=== PATIENT | female | born 1985 | race Two or more races ===

== ENCOUNTER 2016-07-07 09:06 | Emergency (ER) | payer BC, MEDICAID ==
[2016-07-07 10:40] LABS: ABSOLUTE EOSINOPHILS # (AUTO) 0.1 10^3/uL (0.0-0.6); ABSOLUTE LYMPHOCYTES (AUTO) 2.6 10^3/uL (0.5-4.7); ABSOLUTE MONOCYTES (AUTO) 0.5 10^3/uL (0.1-1.4); ABSOLUTE NEUT (AUTO) 3.6 10^3/uL (1.7-8.2); BASOPHILS % (AUTO) 0.7 % (0-2); HEMATOCRIT 21.4 % (36.0-47.0); HGB HCT DIFFERENCE -0.7; LYMPHOCYTES % (AUTO) 37.7 % (13-45); MEAN CORPUSCULAR HEMOGLOBIN 24.9 pg (27.0-33.4); MEAN CORPUSCULAR HGB CONC 32.3 g/dL (32.0-36.0); MEAN CORPUSCULAR VOLUME 77 fl (80-97); MONOCYTES % (AUTO) 7.5 % (3-13); RED BLOOD COUNT 2.78 10^6/uL (3.72-5.28); RED CELL DISTRIBUTION WIDTH 15.5 % (11.5-14.0); SEGMENTED NEUTROPHILS % (AUTO) 53.1 % (42-78); WHITE BLOOD COUNT 6.8 10^3/uL (4.0-10.5)
[2016-07-07 10:42] LABS: HEMOGLOBIN 6.9 g/dL (12.0-15.5)
[2016-07-07] MEDS ORDERED: NORMAL SALINE 250 ML IV PRN (10:48)
[2016-07-07 10:54] LABS: ALANINE AMINOTRANSFERASE 54 U/L (9-52); ALBUMIN 4.2 g/dL (3.5-5.0); ALKALINE PHOSPHATASE 60 U/L (38-126); ANION GAP 12 (5-19); ASPARTATE AMINO TRANSFERASE 58 U/L (14-36); BILIRUBIN,TOTAL 0.6 mg/dL (0.2-1.3); BLOOD UREA NITROGEN 6 mg/dL (7-20); CALCIUM 9.2 mg/dL (8.4-10.2); CARBON DIOXIDE 24 mmol/L (22-30); CHLORIDE 106 mmol/L (98-107); CREATININE RESULT 0.76 mg/dL (0.52-1.25); GLUCOSE 77 mg/dL (75-110); POTASSIUM 4.2 mmol/L (3.6-5.0); SODIUM 141.5 mmol/L (137-145); TOTAL PROTEIN 7.7 g/dL (6.3-8.2)
--- NOTE | 2016-07-07 11:26 | ER Document Report ---
ED GI/ - General Chief Complaint: Vaginal Bleeding Stated Complaint: ABNORMAL LABS Notes: This is a 30-year-old with a ParaGard IUD in place for about 18 months who presents complaining of excessive vaginal bleeding. She was seen at urgent care about 5 days ago and had her blood drawn, purportedly hemoglobin of 8. Patient states she's continued to bleed thick, dark and heavy clots and is feeling lightheaded and weak. She states she has ringing in her ears and shortness of breath with exertion. The ParaGard was placed at [facility] in [facility]. She does not have a local BLOCK LAYER at this time. She denies any fever. She complains of some crampy pelvic discomfort but no sharp pain. TRAVEL OUTSIDE OF THE [place] IN LAST 30 DAYS: No - Related Data Allergies/Adverse Reactions: No Known Allergies Allergy (Verified 07/07/16 09:32) Past Medical History - General Information source: Patient Last Menstrual Period: june - Social History Smoking Status: Current Some Day Smoker Cigarette use (# per day): Yes - 1 or 2 per day Chew tobacco use (# tins/day): No Frequency of alcohol use: Occasional Drug Abuse: None Family History: Reviewed & Not Pertinent Patient has suicidal ideation: No Patient has homicidal ideation: No Surgical Hx: Negative - Immunizations Immunizations up to date: Yes Hx Diphtheria, Pertussis, Tetanus Vaccination: Yes Review of Systems - Review of Systems Constitutional: denies: Fever EENT: denies: Throat pain Cardiovascular: Lightheaded. denies: Syncope Respiratory: Short of breath Gastrointestinal: Nausea. denies: Vomiting Genitourinary: denies: Flank pain Female Genitourinary: Heavy/abnormal periods Musculoskeletal: denies: Leg swelling Skin: denies: Rash Hematologic/Lymphatic: denies: Enlarged lymph nodes Neurological/Psychological: denies: Numbness, Tingling Physical Exam - Vital signs Vitals: Temp Pulse Resp BP Pulse Ox 98.2 F 117 H 14 141/86 H 100 07/07/16 09:32 07/07/16 09:32 07/07/16 09:32 07/07/16 09:32 07/07/16 09:32 - Notes Notes: GENERAL: Well-appearing, well-nourished and in no acute distress. HEAD: Atraumatic, normocephalic. EYES: Pupils equal round and reactive to light, extraocular movements intact, sclera anicteric, conjunctiva are normal. ENT: nares patent, oropharynx clear without exudates. Moist mucous membranes. NECK: Normal range of motion, supple without lymphadenopathy or JVD. LUNGS: Breath sounds clear to auscultation bilaterally and equal. No wheezes rales or rhonchi. HEART: Regular rate and rhythm without murmurs, rubs or gallops. ABDOMEN: Soft, nontender, normoactive bowel sounds. No guarding, no rebound. No masses appreciated. : Normal external female genitalia, very scanty dark blood in the vaginal vault, cervix visualized and unable to visualize IUD strings EXTREMITIES: Normal range of motion, no pitting or edema. No clubbing or cyanosis. NEUROLOGICAL: Cranial nerves II through XII grossly intact. Normal speech, normal gait. PSYCH: Normal mood, normal affect. SKIN: Warm, Dry, normal turgor, no rashes or lesions noted. Course - Re-evaluation Re-evalutation: 07/07/16 14:[address] Gonzalez who reccommends Orto Novum 35mcg pil, iron pills, and follow up in office. 07/07/16 17:23 tolerated transfusion, feeling better. Ready to go home. - Vital Signs Vital signs: Temp Pulse Resp BP Pulse Ox 98.2 F 117 H 17 111/69 100 07/07/16 13:05 07/07/16 09:32 07/07/16 17:01 07/07/16 17:01 07/07/16 17:01 - Laboratory Result Diagrams: 07/07/16 10:13 07/07/16 10:13 Laboratory results interpreted by me: 07/07/16 07/07/16 07/07/16 10:13 10:13 11:36 RBC 2.78 L Hgb 6.9 L Hct 21.4 L MCV 77 L MCH 24.9 L RDW 15.5 H BUN 6 L AST 58 H ALT 54 H Crossmatch See Detail Discharge - Discharge Clinical Impression: Acute blood loss anemia, Dysfunctional uterine bleeding Condition: Stable Disposition: HOME, SELF-CARE Additional Instructions: follow up with [facility] as soon as possible if still bleeding, within one month if bleeding has stopped. Drink plenty of fluids. Prescriptions: Norethindrone-Ethinyl Estrad [Ortho-Novum] 1 each PO DAILY #1 packet Pnv with Ca,No.72/Iron,Carb/FA [ Plus Iron Tablet] 1 each PO DAILY #30 tablet Forms: Return to Work Referrals: MARLEEN GONZALEZ MD [ACTIVE STAFF] - Follow up as needed
[2016-07-07 17:24] VITALS: BP 111/69
== END 2016-07-07 17:37 | disposition home or self-care (01) ==
LOC: ER 09:06
DX: N93.8 Other specified abnormal uterine and vaginal bleeding (principal); D62 Acute posthemorrhagic anemia; R42 Dizziness and giddiness; R53.1 Weakness; H93.19 Tinnitus, unspecified ear; R06.02 Shortness of breath; F17.210 Nicotine dependence, cigarettes, uncomplicated; R11.0 Nausea
CPT/HCPCS: 99284; 86900; 86901; 36415; 36430; 86850; 84703; 85025; 80053; 86920; 74000; 76830; P9016